=== PATIENT | male | born 1990 | race Caucasian/White ===

== ENCOUNTER 2019-10-17 19:19 | Emergency (ER) | payer BC ==
[~2019-10-17] VITALS: Ht 185.4 cm; Wt 145.1 kg
[~2019-10-17 19:19] MED LIST: HYDROCODONE BIT1 T11 PO; PREVACID30 MG PO
[2019-10-17] MEDS ORDERED: CABERGOLINE0.5 MG PO (19:23)
[2019-10-17] MEDS ORDERED: TAMOXIFEN CITRA PO (19:23)
[2019-10-17] MEDS ORDERED: SAXENDA3 MG/0.5 M SQ (19:23)
[2019-10-17] MEDS ORDERED: OMEPRAZOLE40 MG PO (19:24)
[2019-10-17] MEDS ORDERED: Hytone 2.5% Oin30 GM PO (19:24)
[2019-10-17] MEDS ORDERED: PREVIDENT100 ML DT (19:24)
[2019-10-17 19:54] LABS: BILIRUBIN NEGATIVE (NEGATIVE); BLOOD NEGATIVE (NEGATIVE); CLARITY SL CLOUDY (CLEAR); COLOR YELLOW (YELLOW); GLUCOSE NEGATIVE (NEGATIVE); KETONE TRACE (NEGATIVE); LEUKO ESTERASE NEGATIVE (NEGATIVE); NITRITE NEGATIVE (NEGATIVE); PH 6.5 (5.0-9.0); SPECIFIC GRAVITY 1.025 (1.005-1.030); UROBILINOGEN 0.2 E.U./dl (0.2-1.0)
[2019-10-17 20:04] LABS: EPITHELIAL CELLS 0-2
[2019-10-17] MEDS ORDERED: IBU800 MG PO (22:19)
== END 2019-10-17 22:20 | disposition home or self-care (01) ==
LOC: ED 19:19
PROVIDERS: Nurse Practitioner Family
DX: N50.812 Left testicular pain (principal); M54.5 Low back pain; R20.0 Anesthesia of skin; R20.2 Paresthesia of skin; F17.220 Nicotine dependence, chewing tobacco, uncomplicated; Z79.899 Other long term (current) drug therapy

== ENCOUNTER 2021-05-06 | Emergency (ER) | payer BC ==
[~2021-05-06] VITALS: Ht 182.8 cm
[~2021-05-06] MED LIST changes: +CABERGOLINE0.5 MG PO; +Hytone 2.5% Oin30 GM PO; +IBU800 MG PO; +OMEPRAZOLE40 MG PO; +PREVIDENT100 ML DT; +SAXENDA3 MG/0.5 M SQ; +TAMOXIFEN CITRA PO
== END 2021-05-06 00:21 | disposition home or self-care (01) ==
LOC: ED
DX: S05.02XA Injury of conjunctiva and corneal abrasion without foreign body, left eye, initial encounter (principal); Z79.899 Other long term (current) drug therapy; X58.XXXA Exposure to other specified factors, initial encounter; Y93.H2 Activity, gardening and landscaping; Y92.89 Other specified places as the place of occurrence of the external cause; Y99.8 Other external cause status